=== PATIENT | female | born 1990 | race Two or more races ===

== ENCOUNTER 2020-02-14 23:16 | Emergency (ER) | payer SELFPAY ==
[~2020-02-14] VITALS: Ht 167.6 cm; Wt 57.6 kg
[2020-02-15 02:07] VITALS: BP 98/78
== END 2020-02-15 02:16 | disposition home or self-care (01) ==
LOC: ER 23:19
DX: N75.0 Cyst of Bartholin's gland (principal); R10.2 Pelvic and perineal pain
CPT/HCPCS: 56420